=== PATIENT | female | born 1980 | race African-American/Black ===

== ENCOUNTER 2024-06-16 10:59 | Emergency (ER) | payer SELFPAY ==
[~2024-06-16] VITALS: Ht 165.1 cm; Wt 88.0 kg
[2024-06-16 11:05] VITALS: TEMP 36.8; O2SAT 100
[2024-06-16] MEDS: MORPHINE SULFATE 4 MG/ML INJ (FOR IV/IM USE) IV ONE (11:39)
[2024-06-16 11:55] LABS: BASOPHILS % 1.1 % (0.0-2.0); EOSINOPHILS % 1.9 % (0.0-5.0); HEMATOCRIT. 40.5 % (36.0-48.0); HEMOGLOBIN. 13.3 g/dL (12.0-16.0); LYMPHOCYTES % 29.8 % (20.0-50.0); MEAN CORPUSCULAR HEMOGLOBIN 29.4 pg (28.0-32.0); MEAN CORPUSCULAR HGB CONC 32.9 g/dL (31.0-37.0); MEAN CORPUSCULAR VOLUME 89.5 fL (81.0-99.0); MEAN PLATELET VOLUME 10.2 fl (7.4-10.4); NEUTROPHILS % 59.2 % (40.0-76.0); PLATELET 235 x1000/uL (130-400); RED BLOOD CELL COUNT 4.52 mill/uL (4.2-5.4); RED CELL DISTRIBUTION WIDTH 13.4 % (11.6-14.6); WHITE BLOOD COUNT 4.9 x1000/uL (4.5-11.0)
[2024-06-16 11:56] LABS: CHLORIDE 102 mEq/L (98-107); SODIUM 137 mEq/L (136-145)
[2024-06-16 11:57] LABS: CARBON DIOXIDE 26 mEq/L (21-32)
[2024-06-16 12:02] LABS: CREATININE 0.8 mg/dL (0.6-1.0); GLUCOSE 96 mg/dL (70-105); UREA NITROGEN BLOOD 10 mg/dL (9-23)
[2024-06-16 12:09] LABS: D-DIMER 0.2 mg/L FEU (<0.50); PROTHROMBIN TIME 10.7 sec (9.6-11.0)
[2024-06-16 12:19] LABS: ETHANOL BLOOD < 10 mg/dL (<10); TROPONIN I HIGH SENSITIVITY < 4 ng/L (3.0-34)
[2024-06-16 12:22] LABS: *AMPHETAMINES SCREEN URINE NEGATIVE (NEGATIVE); *BARBITURATES SCREEN URINE NEGATIVE (NEGATIVE); *BENZODIAZEPINES SCREEN URINE NEGATIVE (NEGATIVE); *COCAINE SCREEN URINE NEGATIVE (NEGATIVE); METHADONE URINE SCREEN NEGATIVE (NEGATIVE); OPIATES URINE SCREEN NEGATIVE (NEGATIVE)
[2024-06-16 12:23] LABS: CANNABINOID URINE SCREEN NEGATIVE (NEGATIVE); ECSTASY MDMA SCREEN URINE NEGATIVE (NEGATIVE); PHENCYCLIDINE URINE SCREEN NEGATIVE (NEGATIVE)
[2024-06-16] MEDS ORDERED: AMLO2.5T45 MT (12:40)
[2024-06-16 13:06] VITALS: BP 157/90; PULSE 66; RESP 15; O2SAT 99
== END 2024-06-16 13:28 | disposition home or self-care (01) ==
LOC: ER 10:59
DX: R07.89 Other chest pain (principal); I10 Essential (primary) hypertension; F19.90 Other psychoactive substance use, unspecified, uncomplicated; Z79.899 Other long term (current) drug therapy
CPT/HCPCS: 80305; 80048; 81025; 80320; 83880; 85025; 85379; 85610; 84484; 36415; 71045; 93005; 96374; 99285; J2270; Z7610; A4606; G0480

== ENCOUNTER 2025-02-16 19:16 | Emergency (ER) | payer SELFPAY ==
[~2025-02-16] VITALS: Ht 157.5 cm; Wt 85.0 kg
[~2025-02-16 19:16] MED LIST: AMLO2.5T45 MT
[2025-02-16 19:22] VITALS: O2SAT 100
[2025-02-16] MEDS ORDERED: METH4TAB95 MT (20:24)
[2025-02-16] MEDS ORDERED: AMLO2.5T45 MT (20:24)
[2025-02-16] MEDS ORDERED: ESOM20CA49 MT (20:29)
[2025-02-16 20:49] VITALS: BP 210/100; PULSE 75; RESP 14; TEMP 36.6; O2SAT 100
== END 2025-02-16 21:02 | disposition home or self-care (01) ==
LOC: ER 19:16
DX: M54.30 Sciatica, unspecified side (principal); I10 Essential (primary) hypertension
CPT/HCPCS: 99283